=== PATIENT | female | born 1995 | race Asian ===

== ENCOUNTER 2018-07-01 15:38 | Inpatient (IN) ==
[2018-07-01 16:48] LABS: Basophils # (auto) 0.01 K/uL (0-0.2); Basophils % (auto) 0.2 %; Eosinophils # (auto) 0.01 K/uL (0-0.5); Eosinophils % (auto) 0.2 %; Hematocrit (blood only) 38.8 % (37-47); Hemoglobin 13.3 g/dL (12.0-16.0); Immature Granulocytes # (auto) 0.01 K/uL (0.00-0.02); Immature Granulocytes % (auto) 0.2 %; Lymphocytes # (auto) 0.82 K/uL (1.2-3.4); Lymphocytes % (auto) 18.2 %; Mean Corpuscular Hgb Conc 34.3 g/dL (32-36); Mean Corpuscular Volume 85.3 fL (80-100); Mean Platelet Volume 12.1 fL (7.4-10.4); Monocytes # (auto) 0.23 K/uL (0.11-0.59); Monocytes % (auto) 5.1 %; Neutrophils # (auto) 3.42 K/uL (1.4-6.5); Neutrophils % (auto) 76.1 %; Platelet Count 203 K/uL (130-400); RDW Coefficient of Variation 14.5 % (11.5-14.5); Red Blood Count 4.55 M/uL (4.2-5.4)
[2018-07-01 16:58] LABS: Appearance Urine Clear (Clear); Bilirubin Urine Negative (Negative); Blood Urine Negative (Negative); Color Urine Yellow; Glucose Urine UA Negative (Negative); Ketones Urine Trace (Negative); Leukocyte Esterase Urine Negative (Negative); Nitrite Urine Negative (Negative); Protein Urine Negative (Negative); Specific Gravity Urine 1.018 (1.000-1.030); Urobilinogen Urine Negative (Negative); pH Urine 5.5 (4.5-7.5)
[2018-07-01 17:10] LABS: Alanine Aminotransferase 25 U/L (12-78); Aspartate Aminotransferase 20 U/L (15-37); BUN Creatinine Ratio 16.3 (10-20); Blood Urea Nitrogen 9 mg/dl (7-18); Carbon Dioxide 23 mmol/L (21-32); Chloride 108 mmol/L (98-107); Est GFR (African American) > 150.0; Est GFR (Non-African American) 135.7; Glucose 80 mg/dl (70-99); Potassium 3.5 mmol/L (3.5-5.1); Sodium 139 mmol/L (136-145)
[2018-07-01 17:12] LABS: Pregnancy Test, Serum Negative (Negative)
[2018-07-01 17:15] LABS: Acetaminophen < 2 ug/ml (10-30); Salicylate < 1.7 mg/dl (2.8-20)
[2018-07-01 17:16] LABS: Amphetamines+Metham, Urine Neg (Neg); Barbiturates, Urine Neg (Neg); Benzodiazepine, Urine Neg (Neg); Cocaine, Urine Neg (Neg); MDMA (Ecstacy), Urine Neg (Neg); Methadone, Urine Neg (Neg); Opiate, Urine Neg (Neg); Phencyclidine, Urine Neg (Neg)
[2018-07-01 17:20] LABS: Albumin Globulin Ratio 0.8 (0.9-2); Alkaline Phosphatase 64 U/L (45-117); Bilirubin,Total 0.2 mg/dl (0.2-1); Globulin 4.8 gm/dl (2.5-4.0); Total Protein 8.8 gm/dl (6.4-8.2)
--- NOTE | 2018-07-01 19:49 | Emergency Department Note ---
Entered by Loren Deshpande acting as a scribe for History of Present Illness General Chief complaint: Mental Health Evaluation Stated complaint: MENTAL HEALTH EVALUATION Source: patient History of Present Illness Onset (ago): hour(s) (today) Location: head Pain Consistency: + other (persistent ) Quality: + other (thoughts of hurting self) Associated symptoms: + other (positive plan to hurt self; positive "feels helpless") The patient is a 23 year old female who presents to the Emergency Room with complaints of persistent thoughts of hurting herself that began today. Per nursing notes, the patient had a plan to jump off of a building. The patient states that she had these thoughts after receiving a notification of an academic integrity violation. The patient states that she violated academic integrity for taking pictures of past exams in her professor's office hours, and states that this violation will remain on her academic record. The patient states that she " feels so helpless". The patient states that she has no family here, and denies having any other counselor. The patient states that she went to [facility] today. Home Medications Home Medications Medication Instructions Recorded Confirmed Type hydroxychloroquine 200 mg PO BID 01/30/18 01/30/18 History norethindrone-e.estradiol-iron 07/01/18 History [[place] Fe 1-20 EQ (28)] Allergies Allergy/AdvReac Type Severity Reaction Status Date / Time No Known Allergies Allergy Verified 07/01/18 16:17 Past Med/Surg History Medical History Rheumatoid arthritis Family History Other No significant family history Social History Preferred Language: [place] Feels Safe at Home: Yes Smoking Status: Never smoker Review of Systems See HPI for pertinent positives & negatives. and A total of 10 systems reviewed and were otherwise negative Physical Exam Vital Signs Vital Signs - 24 hr 07/01/18 16:00 07/01/18 17:06 Temperature 36.6 C Temperature Source Oral Sepsis Recent Fever Within 48 Hours No Sepsis New/Unexplained Change in Mental Status No Sepsis Action Taken by Nursing No Action Required Pulse Rate 83 Pulse Rate [Right Finger] 89 Pulse Rhythm Regular Pulse Rhythm [Right Finger] Regular Pulse Strength Normal Pulse Strength [Right Finger] Normal Respiratory Rate 16 16 Respiratory Effort / Characteristics Non-Labored Spontaneous Non-Labored Spontaneous Respiratory Depth Normal Normal Respiratory Pattern Regular Regular Blood Pressure 115/72 Blood Pressure [Right Arm] 124/72 Blood Pressure Mean 86 Blood Pressure Mean [Right Arm] 89 Blood Pressure Position Sitting Blood Pressure Position [Right Arm] Sitting Pulse Oximetry 99 100 Oxygen Delivery Method Room Air Room Air GENERAL: Patient is awake, alert, and in no acute distress.Patient is mildly anxious appearing. EYES: The conjunctivae are clear. The pupils are round and reactive. EARS, NOSE, MOUTH AND THROAT: The nose is without any evidence of any deformity. Mucous membranes are moist.Tongue is midline NECK: The neck is nontender and supple. RESPIRATORY: Normal respiratory effort is noted. There is no evidence of wheezing rhonchi or rales to auscultation. CARDIOVASCULAR: Regular rate and rhythm noted. There no murmurs rubs or gallops normal S1 normal S2 GASTROINTESTINAL: The abdomen is soft. Bowel sounds are present in all quadrants. Abdomen is nontender. MUSCULOSKELETAL/EXTREMITIES: There is no evidence of gross deformity. Full range of motion is noted in the hips and shoulders. SKIN: There is no obvious evidence of any rash. There are no petechiae, pallor or cyanosis noted. NEUROLOGIC: Patient is awake alert and oriented x3. PSYCH: The patient is tearful. Affect flat. Patient admits to suicidal ideations with a plan to jump from a building. Course 155: The patient was evaluated in room A5, and a complete history and physical examination were performed. 191: The patient will sign in for further evaluation. 1939: A bed search is underway. Medical Decision Making Differential Diagnosis Differential diagnosis: Etiologies such as mood disorder, infection, hypoglycemia, electrolyte abnormalities, cardiac sources, intracerebral event, toxicologic, neurologic, as well as others were entertained. Medical Records Attestation: I reviewed the patient's medical records. Home Medications Current Medication List: was personally reviewed by me Laboratory Data Attestation: I reviewed the patient's lab results. Result diagrams: 07/01/18 16:15 07/01/18 16:15 Lab Results 07/01/18 07/01/18 07/01/18 Range/Units 16:15 16:15 16:15 WBC 4.50 L (4.8-10.8) K/uL RBC 4.55 (4.2-5.4) M/uL Hgb 13.3 (12.0-16.0) g/dL Hct 38.8 (37-47) % MCV 85.3 (80-100) fL MCH 29.2 (25-34) pg MCHC 34.3 (32-36) g/dL RDW Std Deviation 45.0 (36.4-46.3) fL RDW Coeff of [place] 14.5 (11.5-14.5) % Plt Count 203 (130-400) K/uL MPV 12.1 H (7.4-10.4) fL Immature Gran % (Auto) 0.2 % Neut % (Auto) 76.1 % Lymph % (Auto) 18.2 % [place] % (Auto) 5.1 % Eos % (Auto) 0.2 % Baso % (Auto) 0.2 % Immature Gran # (Auto) 0.01 (0.00-0.02) K/uL Neut # (Auto) 3.42 (1.4-6.5) K/uL Lymph # (Auto) 0.82 L (1.2-3.4) K/uL [place] # (Auto) 0.23 (0.11-0.59) K/uL Eos # (Auto) 0.01 (0-0.5) K/uL Baso # (Auto) 0.01 (0-0.2) K/uL Sodium 139 (136-145) mmol/L Potassium 3.5 (3.5-5.1) mmol/L Chloride 108 H (98-107) mmol/L Carbon Dioxide 23 (21-32) mmol/L Anion Gap 8.0 (3-11) BUN 9 (7-18) mg/dl Creatinine 0.53 L (0.6-1.2) mg/dl Est Cr Clr Drug Dosing Not Reportable Est GFR ( Amer) > 150.0 Est GFR (Non-Af Amer) 135.7 BUN/Creatinine Ratio 16.3 (10-20) Glucose 80 (70-99) mg/dl Calcium 9.0 (8.5-10.1) mg/dl Total Bilirubin 0.2 (0.2-1) mg/dl AST 20 (15-37) U/L ALT 25 (12-78) U/L Alkaline Phosphatase 64 (45-117) U/L Total Protein 8.8 H (6.4-8.2) gm/dl Albumin 4.0 (3.4-5.0) gm/dl Globulin 4.8 H (2.5-4.0) gm/dl Albumin/Globulin Ratio 0.8 L (0.9-2) TSH 0.705 (0.300-4.500) uIu/ml HCG, Qual (Negative) Urine Color Urine Appearance (Clear) Urine pH (4.5-7.5) Ur Specific [place] (1.000-1.030) Urine Protein (Negative) Urine Glucose (UA) (Negative) Urine Ketones (Negative) Urine Blood (Negative) Urine Nitrite (Negative) Urine Bilirubin (Negative) Urine Urobilinogen (Negative) Ur Leukocyte Esterase (Negative) Salicylates < 1.7 L (2.8-20) mg/dl Urine Opiates Screen (Neg) Ur Methadone, Qual (Neg) Acetaminophen < 2 L (10-30) ug/ml Urine Barbiturates (Neg) Ur Phencyclidine (PCP) (Neg) U Amphetamin/Meth Scrn (Neg) MDMA (Ecstasy) Screen (Neg) U Benzodiazepines Scrn (Neg) Ur Cocaine Metabolite (Neg) U Marijuana (THC) Screen (Neg) Ethyl Alcohol mg/dL (0-3) mg/dl 07/01/18 07/01/18 07/01/18 Range/Units 16:15 16:15 16:36 WBC (4.8-10.8) K/uL RBC (4.2-5.4) M/uL Hgb (12.0-16.0) g/dL Hct (37-47) % MCV (80-100) fL MCH (25-34) pg MCHC (32-36) g/dL RDW Std Deviation (36.4-46.3) fL RDW Coeff of [place] (11.5-14.5) % Plt Count (130-400) K/uL MPV (7.4-10.4) fL Immature Gran % (Auto) % Neut % (Auto) % Lymph % (Auto) % [place] % (Auto) % Eos % (Auto) % Baso % (Auto) % Immature Gran # (Auto) (0.00-0.02) K/uL Neut # (Auto) (1.4-6.5) K/uL Lymph # (Auto) (1.2-3.4) K/uL [place] # (Auto) (0.11-0.59) K/uL Eos # (Auto) (0-0.5) K/uL Baso # (Auto) (0-0.2) K/uL Sodium (136-145) mmol/L Potassium (3.5-5.1) mmol/L Chloride (98-107) mmol/L Carbon Dioxide (21-32) mmol/L Anion Gap (3-11) BUN (7-18) mg/dl Creatinine (0.6-1.2) mg/dl Est Cr Clr Drug Dosing Est GFR ( Amer) Est GFR (Non-Af Amer) BUN/Creatinine Ratio (10-20) Glucose (70-99) mg/dl Calcium (8.5-10.1) mg/dl Total Bilirubin (0.2-1) mg/dl AST (15-37) U/L ALT (12-78) U/L Alkaline Phosphatase (45-117) U/L Total Protein (6.4-8.2) gm/dl Albumin (3.4-5.0) gm/dl Globulin (2.5-4.0) gm/dl Albumin/Globulin Ratio (0.9-2) TSH (0.300-4.500) uIu/ml HCG, Qual Negative (Negative) Urine Color Urine Appearance (Clear) Urine pH (4.5-7.5) Ur Specific [place] (1.000-1.030) Urine Protein (Negative) Urine Glucose (UA) (Negative) Urine Ketones (Negative) Urine Blood (Negative) Urine Nitrite (Negative) Urine Bilirubin (Negative) Urine Urobilinogen (Negative) Ur Leukocyte Esterase (Negative) Salicylates (2.8-20) mg/dl Urine Opiates Screen Neg (Neg) Ur Methadone, Qual Neg (Neg) Acetaminophen (10-30) ug/ml Urine Barbiturates Neg (Neg) Ur Phencyclidine (PCP) Neg (Neg) U Amphetamin/Meth Scrn Neg (Neg) MDMA (Ecstasy) Screen Neg (Neg) U Benzodiazepines Scrn Neg (Neg) Ur Cocaine Metabolite Neg (Neg) U Marijuana (THC) Screen Neg (Neg) Ethyl Alcohol mg/dL < 3.0 (0-3) mg/dl 07/01/18 Range/Units 16:36 WBC (4.8-10.8) K/uL RBC (4.2-5.4) M/uL Hgb (12.0-16.0) g/dL Hct (37-47) % MCV (80-100) fL MCH (25-34) pg MCHC (32-36) g/dL RDW Std Deviation (36.4-46.3) fL RDW Coeff of [place] (11.5-14.5) % Plt Count (130-400) K/uL MPV (7.4-10.4) fL Immature Gran % (Auto) % Neut % (Auto) % Lymph % (Auto) % [place] % (Auto) % Eos % (Auto) % Baso % (Auto) % Immature Gran # (Auto) (0.00-0.02) K/uL Neut # (Auto) (1.4-6.5) K/uL Lymph # (Auto) (1.2-3.4) K/uL [place] # (Auto) (0.11-0.59) K/uL Eos # (Auto) (0-0.5) K/uL Baso # (Auto) (0-0.2) K/uL Sodium (136-145) mmol/L Potassium (3.5-5.1) mmol/L Chloride (98-107) mmol/L Carbon Dioxide (21-32) mmol/L Anion Gap (3-11) BUN (7-18) mg/dl Creatinine (0.6-1.2) mg/dl Est Cr Clr Drug Dosing Est GFR ( Amer) Est GFR (Non-Af Amer) BUN/Creatinine Ratio (10-20) Glucose (70-99) mg/dl Calcium (8.5-10.1) mg/dl Total Bilirubin (0.2-1) mg/dl AST (15-37) U/L ALT (12-78) U/L Alkaline Phosphatase (45-117) U/L Total Protein (6.4-8.2) gm/dl Albumin (3.4-5.0) gm/dl Globulin (2.5-4.0) gm/dl Albumin/Globulin Ratio (0.9-2) TSH (0.300-4.500) uIu/ml HCG, Qual (Negative) Urine Color Yellow Urine Appearance Clear (Clear) Urine pH 5.5 (4.5-7.5) Ur Specific [place] 1.018 (1.000-1.030) Urine Protein Negative (Negative) Urine Glucose (UA) Negative (Negative) Urine Ketones Trace H (Negative) Urine Blood Negative (Negative) Urine Nitrite Negative (Negative) Urine Bilirubin Negative (Negative) Urine Urobilinogen Negative (Negative) Ur Leukocyte Esterase Negative (Negative) Salicylates (2.8-20) mg/dl Urine Opiates Screen (Neg) Ur Methadone, Qual (Neg) Acetaminophen (10-30) ug/ml Urine Barbiturates (Neg) Ur Phencyclidine (PCP) (Neg) U Amphetamin/Meth Scrn (Neg) MDMA (Ecstasy) Screen (Neg) U Benzodiazepines Scrn (Neg) Ur Cocaine Metabolite (Neg) U Marijuana (THC) Screen (Neg) Ethyl Alcohol mg/dL (0-3) mg/dl Blood Pressure Blood Pressure Findings: Normal blood pressure MDM Narrative The patient is a 23-year-old female who presented to the emergency department for mental health evaluation. Patient was sent to the emergency department from [facility] for an evaluation of suicidal ideation with a plan. The patient was medically cleared in the emergency department. I do feel the patient is high risk given her recent developments with her grades. For this reason the patient was felt to be a good candidate for inpatient management. The patient was evalu ated by the mental health case assembler. She was offered a voluntary admission and was agreeable. The patient was medically cleared and a bed search is underway at this time. Impression & Plan Depression, Suicidal ideation Discharge Plan Visit Data *Final* Discharge Date/Time: 07/01/18 20:14 Chief Complaint: Mental Health Evaluation Stated Complaint: MENTAL HEALTH EVALUATION ED Provider: Joe Deutsch Discharge Problem: Depression, Suicidal ideation Patient Disposition: Admitted As Inpatient Discharge Instructions Interventions: ED Discharge Assessment Last Done: 07/01/18 20:14 Discharge Problem: Depression Qualifiers: Depression Type: unspecified Qualified Code(s): F32.9 - Major depressive disorder, single episode, unspecified The ramanaibe's documentation has been prepared under my direction and personally reviewed by me in its entirety. I confirm that the note above accurately reflects all work, treatment, procedures, and medical decision making performed by me.
[2018-07-01] MEDS ORDERED: ACETAMINOPHEN 325 MG TAB PO PRN (20:37)
[2018-07-01] MEDS ORDERED: MAGNESIUM HYDROXIDE SUSP 30 ML UDC PO PRN (20:37)
[2018-07-01] MEDS ORDERED: ALUMINUM/MAGNESIUM SUSP 30 ML UDC PO PRN (20:37)
[2018-07-01] MEDS ORDERED: BISMUTH SUBSALICYLATE PER ML OMNICELL CHARGE PO PRN (20:37)
[2018-07-01] MEDS ORDERED: SODIUM CHLORIDE 0.65% NA SOLN 45 ML (OCEAN) PRN (20:37)
--- NOTE | 2018-07-02 10:23 | History & Physical ---
Date of Service July 02, 2018 Impression / Recommendations Impression 23-year-old female admitted voluntarily for inpatient psychiatric treatment due to reports of SI associated with significant academic stressor. Pt was given an academic integrity violation and is experiencing severe anxiety related to the potential repercussions. She had experienced SI after being contacted by her professor, with plan to jump from a building. Presently patient is denying ongoing SI, but remains at risk of harm to herself given the stressor has not yet been addressed. At this time, there is limited criteria to diagnose a formal depressive or anxiety disorder, but her symptoms following this stressor could easily escalate to that level if left unaddressed. Will attempt to gather collateral information from boyfriend and other supports to ensure patient is not minimizing any concerns which predate the event in question. In the meantime, she will participate in group programming in order to develop healthy and effective coping strategies. No medication initiation is indicated based on information provided by patient, but could consider start of an SSRI if history should change. At this time, inpatient psychiatric admission is medically necessary due to reported SI with plan in relation to a significant academic stressor, history of depressive symptoms, and the fact that the risk factor in question has not been adequately addressed to reduce associated stress on patient. Pt is at increased risk of harm to self if discharged prematurely. Dr. Sabra Lisa was directly involved in review and discussion of the patient's case and participated in medical decision making regarding treatment recommendations. (1) Suicidal ideation: 07/02 - Admitted to a locked inpatient behavioral health unit, on q15 minute safety checks - Encourage medication initiation/adjustments as indicated - Encourage participation in group and recreational therapies - Gather collateral information from outpatient providers - Suggest family meeting to involve outpatient supports in safety planning - Arrange appropriate aftercare (2) Adjustment disorder with mixed anxiety and depressed mood: 07/02 - No clear criteria for a formal anxiety or depressive disorder at present: differential includes major depressive disorder, generalized anxiety disorder - certainly with potential to develop into either condition should stressors continue - Will hold on medication initiation given acute stressor; however, can consider SSRI if indicated following obtaining collateral information - Gather history of boyfriend to determine if any minimization of symptoms - Communication with the school regarding disciplinary actions - Assist with development of appropriate safety and aftercare planning (3) Rheumatoid arthritis: 07/02 - Confirm home dose of hydroxychloroquine and continue - Boyfriend to bring in medications Rheumatoid arthritis location: multiple sites Rheumatoid factor presence: unspecified presence Qualified Code(s): M06.9 - Rheumatoid arthritis, unspecified Risk Factors Assessment Male: No : No Do You Have Access To A Gun?: No Health Problems: Yes Mental Health Diagnoses: No (history of previous depressive symptoms) Substance Use Disorders: No Previous Attempt: No Family History of Suicide: No (unknown based on culture) Previous Psychiatric Hospitalization: Yes (to obtain antidepressants in [place] (no previous SI)) Hopelessness: Yes Smoker: No Protective Factors Assessment Religion Beliefs: No : No Responsible for Young Children: No Employed: No Stable Relationships: Yes Supportive Family: No (supportive but seen more as additional stressor) Psychiatric History Identifying Data SHAWNA CHANCE is 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 Pt was admitted on 07/01/18 19:35 on a 201 voluntary commitment for acute suicidal ideation, low mood, and anxiety related to academic stressor. Chief Complaint "I first went to [facility], yeah...I tell them what's going on. Then they tell me to come here because I have depression before." History of Present Illness Shawna Chance is a 23-year-old female admitted voluntarily for inpatient psychiatric treatment due to reported acute SI with plan to jump from a building. Pt was reported for an academic integrity violation during her finals week, and was very upset and unsure about the repercussions. Pt states she had been told by a classmate that she was allowed to take pictures of her old exams when reviewing during her professor's office hours. Pt states she did not realize this was not allowed and was confused as to why no one reprimanded her in the moment. She reports receiving an email from her professor following the event - informing her she would be reported for academic dishonesty. Pt reports feeling confused and very overwhelmed by this. She states she explained the situation to her professor, who did not respond positively to her explanation. Pt states she is still hoping the professor reverses the charge, as she believes the situation to be a misunderstanding. She is very concerned about the effect this will have on her applications for graduate school, and reported receives significant pressure from her parents to perform well academically and get into a graduate program. Pt reports having a "very stressful life" - stating her parents hold high expectations for her academic performance and she is very concerned at what their reaction will be. Pt reports previous depressive symptoms the summer, when she had learned her academic performance was sub-par. Pt reports 2-3 months of low mood, anergy, isolative behavior, increased sleep and retreating to bed, and regret. She states she was started on medication after a hospitalization. She denies any suicidal thoughts at that time. Pt does not recall the medication she was prescribed, but reports taking it for only 2-3 months before discontinuing. Pt states she had noticed significant improvement in academics and mood since that time. Until this event - the patient denies any symptoms suggestive of depression or anxiety stating "it was all getting better until this happened." At time of this encounter, patient denies ongoing SI, but remains unsure about what will happen to her academically. She is concerned the information will be see on her graduate school applications and may prevent her from getting into a program. Pt denies SIB, HI, A/V hallucinations, paranoia, germania/hypomania, other symptoms more suggestive of a bipolar presentation, OCD, PTSD, eating disorder, and other specific psychiatric symptoms. Past Psychiatric History Previous Psych History: Hospitalization in [place] to obtain antidepressant medications - Summer 2017 Current Psychiatric Diagnosis: Depression Outpatient Services: None presently; seen once at [facility] just prior to admission Previous Psych Admissions: Hospitalization in [place] to obtain medications Do You Have Access To A Gun?: No History of Previous Suicide Attempt: No Describe Attempts in the Past: No prior attempts Past Medication Trials: Unsure - 1 previous medication, but name is unknown Past Head Trauma/Neuro History History of Concussion/Seizure: No Allergies Allergy/AdvReac Type Severity Reaction Status Date / Time No Known Allergies Allergy Verified 07/01/18 16:17 Home Medications Home Medications Medication Instructions Recorded Confirmed Type hydroxychloroquine 100 mg PO BID 01/30/18 07/02/18 History norethindrone-e.estradiol-iron 07/01/18 History [Mcbain Fe 1-20 EQ (28)] norethindrone-e.estradiol-iron 1 tab PO HS 07/02/18 07/02/18 History [Mcbain Fe 1-20 EQ (28)] Family History Family History of: Doesn't Know (culturally it is not discussed) Alcohol History Hx of Alcohol Use Over the Past 12 Months: No Smoking Use Have You Smoked or Used Tobacco Products in the Last 30 Days: No Smoking Status: Never smoker Substance History Hx of Prescription Med Misuse Over the Past 12 Months: No Hx of Over the Counter Med Misuse Over the Past 12 Months: No Hx of Inhalent Misuse Over the Past 12 Months: No Hx of Organic Substance Use Over the Past 12 Months: No Hx of Illegal Substances/Street Drug Use Over Past 12 Months: No Problems as a Result of Past Substance Use: None Identified Personal History Living Arrangements: Apartment (with boyfriend) Born In: [place] - family still resides there Childhood: Reports a "very stressful life"; parents reportedly put additional pressure on her. She is an only child. Highest Grade Completed: Some College ([employer] at [employer] - studying [email or web address]) Employment Status: Student Marital Status: Living w/ Signif. Other (boyfriend of 6 months) Number Of Children: None Beliefs That Will Affect Care: None Current Legal Problems: No Patient History Medical History Rheumatoid arthritis Family History Other No significant family history Social History Preferred Language: Belarusian Communication Ability: Effective Communication Ability Comment: language barrier at times Adobe Developer Required: No Beliefs That Will Affect Care: None Feels Safe at Home: Yes Smoking Status: Never smoker Review of Systems Review of Systems: Constitutional: reports recent fatigue Cardiovascular: denied Respiratory: reports cough from recent URI Gastrointestinal: denied Neurological: denied Musculoskeletal: reports joint pain in fingers, wrists, elbows and knees Psychiatric: denies symptoms other than stated above Total of at least 10 systems reviewed, pertinent positives as above and in HPI. Physical Exam Psychiatric: Orientation: alert, oriented x 3 and cooperative Apperance: appropriately dressed, appropriately groomed and appeared stated age Thin- appearing, female seated in no acute distress. Level of hygiene and hydration appear adequate. She is appropriately groomed, dressed in sweatshirt and jeans, hair long but neat Eye Contact: good eye contact Motor Behavior: steady gait and station and no abnormal motor movements Speech: normal rate/rhythm/volume of speech Affect: + anxious affect and + tearful affect Mood: + depressed mood and + anxious mood "it's even worse than last year when I got a depression" and "just worried, scared" Thought Process: goal directed thought process, linear/logical thought process and clear/coherent thought process Thought Content: reality based without delusions Suicidal Thoughts: denies suicidal thoughts (but presented with SI and plan to jump from building) Homicidal Thoughts: denies homicidal thoughts Hallucinations: no auditory hallucinations and no visual hallucinations Cognition: recent memory grossly intact, remote memory grossly intact, attention grossly intact and language grossly intact Estimated Intelligence: consistent with education level Insight: + fair insight Judgement: + fair judgement Vital Signs (Past 24 Hours): Last Vital Signs Temp 36.6 C 07/02/18 06:56 Pulse 106 H 07/02/18 06:57 Resp 16 07/02/18 06:56 BP 99/67 L 07/02/18 06:57 Pulse Ox 99 07/01/18 20:38 Exam Statement: A physical exam was performed in the ER prior to admission to the unit by Dr. Joe Deutsch DO. I accept that physical as correct/medical clearance for the inpatient physical exam. Results & Data Laboratory Results Laboratory Results - last 24 hr 07/01/18 07/01/18 07/01/18 16:15 16:15 16:15 WBC 4.50 L RBC 4.55 Hgb 13.3 Hct 38.8 MCV 85.3 MCH 29.2 MCHC 34.3 RDW Std Deviation 45.0 RDW Coeff of Dontrell 14.5 Plt Count 203 MPV 12.1 H Immature Gran % (Auto) 0.2 Neut % (Auto) 76.1 Lymph % (Auto) 18.2 [place] % (Auto) 5.1 Eos % (Auto) 0.2 Baso % (Auto) 0.2 Immature Gran # (Auto) 0.01 Neut # (Auto) 3.42 Lymph # (Auto) 0.82 L Wet[place] # (Auto) 0.23 Eos # (Auto) 0.01 Baso # (Auto) 0.01 Sodium 139 Potassium 3.5 Chloride 108 H Carbon Dioxide 23 Anion Gap 8.0 BUN 9 Creatinine 0.53 L Est Cr Clr Drug Dosing Not Reportable Est GFR ( Amer) > 150.0 Est GFR (Non-Af Amer) 135.7 BUN/Creatinine Ratio 16.3 Glucose 80 Calcium 9.0 Total Bilirubin 0.2 AST 20 ALT 25 Alkaline Phosphatase 64 Total Protein 8.8 H Albumin 4.0 Globulin 4.8 H Albumin/Globulin Ratio 0.8 L TSH 0.705 HCG, Qual Urine Color Urine Appearance Urine pH Ur Specific [place] Urine Protein Urine Glucose (UA) Urine Ketones Urine Blood Urine Nitrite Urine Bilirubin Urine Urobilinogen Ur Leukocyte Esterase Salicylates < 1.7 L Urine Opiates Screen Ur Methadone, Qual Acetaminophen < 2 L Urine Barbiturates Ur Phencyclidine (PCP) U Amphetamin/Meth Scrn MDMA (Ecstasy) Screen U Benzodiazepines Scrn Ur Cocaine Metabolite U Marijuana (THC) Screen Ethyl Alcohol mg/dL 07/01/18 07/01/18 07/01/18 16:15 16:15 16:36 WBC RBC Hgb Hct MCV MCH MCHC RDW Std Deviation RDW Coeff of Dontrell Plt Count MPV Immature Gran % (Auto) Neut % (Auto) Lymph % (Auto) [place] % (Auto) Eos % (Auto) Baso % (Auto) Immature Gran # (Auto) Neut # (Auto) Lymph # (Auto) [place] # (Auto) Eos # (Auto) Baso # (Auto) Sodium Potassium Chloride Carbon Dioxide Anion Gap BUN Creatinine Est Cr Clr Drug Dosing Est GFR ( Amer) Est GFR (Non-Af Amer) BUN/Creatinine Ratio Glucose Calcium Total Bilirubin AST ALT Alkaline Phosphatase Total Protein Albumin Globulin Albumin/Globulin Ratio TSH HCG, Qual Negative Urine Color Urine Appearance Urine pH Ur Specific [place] Urine Protein Urine Glucose (UA) Urine Ketones Urine Blood Urine Nitrite Urine Bilirubin Urine Urobilinogen Ur Leukocyte Esterase Salicylates Urine Opiates Screen Neg Ur Methadone, Qual Neg Acetaminophen Urine Barbiturates Neg Ur Phencyclidine (PCP) Neg U Amphetamin/Meth Scrn Neg MDMA (Ecstasy) Screen Neg U Benzodiazepines Scrn Neg Ur Cocaine Metabolite Neg U Marijuana (THC) Screen Neg Ethyl Alcohol mg/dL < 3.0 07/01/18 16:36 WBC RBC Hgb Hct MCV MCH MCHC RDW Std Deviation RDW Coeff of Dontrell Plt Count MPV Immature Gran % (Auto) Neut % (Auto) Lymph % (Auto) [place] % (Auto) Eos % (Auto) Baso % (Auto) Immature Gran # (Auto) Neut # (Auto) Lymph # (Auto) [place] # (Auto) Eos # (Auto) Baso # (Auto) Sodium Potassium Chloride Carbon Dioxide Anion Gap BUN Creatinine Est Cr Clr Drug Dosing Est GFR ( Amer) Est GFR (Non-Af Amer) BUN/Creatinine Ratio Glucose Calcium Total Bilirubin AST ALT Alkaline Phosphatase Total Protein Albumin Globulin Albumin/Globulin Ratio TSH HCG, Qual Urine Color Yellow Urine Appearance Clear Urine pH 5.5 Ur Specific [place] 1.018 Urine Protein Negative Urine Glucose (UA) Negative Urine Ketones Trace H Urine Blood Negative Urine Nitrite Negative Urine Bilirubin Negative Urine Urobilinogen Negative Ur Leukocyte Esterase Negative Salicylates Urine Opiates Screen Ur Methadone, Qual Acetaminophen Urine Barbiturates Ur Phencyclidine (PCP) U Amphetamin/Meth Scrn MDMA (Ecstasy) Screen U Benzodiazepines Scrn Ur Cocaine Metabolite U Marijuana (THC) Screen Ethyl Alcohol mg/dL Current Inpatient Medications Current Inpatient Medications: Current Inpatient Medications Acetaminophen (Tylenol) 650 mg PO Q4H PRN PRN Reason: Headache or Minor Fever Stop: 07/31/18 20:36 Al Hydrox/Mg Hydrox/Simethicone (Maalox) 30 ml PO Q4H PRN PRN Reason: GI Upset Stop: 07/31/18 20:36 Bismuth Subsalicylate (Kaopectate) 15 ml PO PRN PRN PRN Reason: Loose Stool Stop: 07/31/18 20:36 Hydroxyzine HCl (Vistaril) 50 mg PO HSZ PRN PRN Reason: Insomnia Stop: 07/31/18 20:36 Hydroxyzine HCl (Vistaril) 25 mg PO Q4H PRN PRN Reason: Anxiety Stop: 07/31/18 20:36 Magnesium Hydroxide (Milk Of Magnesia) 30 ml PO DAILY PRN PRN Reason: Heartburn Stop: 07/31/18 20:36 Sodium Chloride ([place] Nasal) 1 - 2 sprays NA PRN PRN PRN Reason: Nasal Dryness/Congestion Stop: 07/31/18 20:36 CPT Code CPT Code Initial Hospital Care: 57703
[2018-07-02] MEDS: HYDROXYCHLOROQUINE SULFATE 200 MG TAB PO SCH (21:51)
[2018-07-02] MEDS ORDERED: [UNRECOGNIZED DRUG - OTHER] PO SCH (22:00)
[2018-07-03] MEDS: HYDROXYCHLOROQUINE SULFATE 200 MG TAB PO SCH (08:46)
--- NOTE | 2018-07-03 10:11 | Discharge Summary ---
Date of Service July 03, 2018 History of Present Illness Magda Uribe is a 23-year-old female admitted voluntarily for inpatient psychiatric treatment due to reported acute SI with plan to jump from a building. Pt was reported for an academic integrity violation during her finals week, and was very upset and unsure about the repercussions. Pt states she had been told by a classmate that she was allowed to take pictures of her old exams when reviewing during her professor's office hours. Pt states she did not realize this was not allowed and was confused as to why no one reprimanded her in the moment. She reports receiving an email from her professor following the event - informing her she would be reported for academic dishonesty. Pt reports feeling confused and very overwhelmed by this. She states she explained the situation to her professor, who did not respond positively to her explanation. Pt states she is still hoping the professor reverses the charge, as she believes the situation to be a misunderstanding. She is very concerned about the effect this will have on her applications for graduate school, and reported receives significant pressure from her parents to perform well academically and get into a graduate program. Pt reports having a "very stressful life" - stating her parents hold high expectations for her academic performance and she is very concerned at what their reaction will be. Pt reports previous depressive symptoms the summer, when she had learned her academic performance was sub-par. Pt reports 2-3 months of low mood, anergy, isolative behavior, increased sleep and retreating to bed, and regret. She states she was started on medication after a hos pitalization. She denies any suicidal thoughts at that time. Pt does not recall the medication she was prescribed, but reports taking it for only 2-3 months before discontinuing. Pt states she had noticed significant improvement in academics and mood since that time. Until this event - the patient denies any symptoms suggestive of depression or anxiety stating "it was all getting better until this happened." At time of this encounter, patient denies ongoing SI, but remains unsure about what will happen to her academically. She is concerned the information will be see on her graduate school applications and may prevent her from getting into a program. Pt denies SIB, HI, A/V hallucinations, paranoia, germania/hypomania, other symptoms more suggestive of a bipolar presentation, OCD, PTSD, eating disorder, and other specific psychiatric symptoms. Physical Exam Mental Examination Thin female appearing younger than her stated age. Casually dressed, good grooming and hygiene, seated in no acute distress with good eye contact and no abnormal movements. Calm and cooperative with the assessment. Mood is "good, as long as I do not think about it," and affect is stable, mildly anxious, appropriate, and congruent. Speech is spontaneous, normal rate, volume, and tone. Thoughts are goal-directed. Denies SI, HI, hallucinations, paranoia. Alert and oriented. Memory, attention, and language are grossly intact per interview. Insight and judgment are poor-fair. Vital Signs (Past 24 Hours) Last Vital Signs Temp 36.6 C 07/03/18 06:00 Pulse 0 L 07/03/18 06:00 Resp 16 07/03/18 06:00 BP 103/72 07/03/18 06:00 Pulse Ox 99 07/01/18 20:38 Principal Diagnosis Adjustment disorder with mixed anxiety and depressed mood. History of major depression, single episode, moderate to severe. Psychiatric Data The patient was on our unit for 2 days. She consistently denied suicidality, stating that she had brief suicidal thoughts after finding out she had been reported for her second conduct violation, but that they had resolved. Although she reported being anxious about the consequences, she denied depressive or anxiety symptoms sufficient to meet criteria for major depression or an anxiety disorder. Although she reported a history of a depressive episode in the summer 2017 which was treated with an antidepressant, she denied depressive symptoms prior to the day of presentation. Although she declined involvement of her parents in [place], her boyfriend whom she lives with locally was involved in treatment and she had a family meeting with him on 07/02/2018. He agreed to that she had not been struggling with mood or anxiety symptoms prior to the day of presentation, and denied any safety concerns with her leaving the hospital. They live together with another roommate, and she and her boyfriend are both going to [place] for 3 weeks in July, traveling there and returning together. She initially stated she was not willing for outpatient treatment, but ultimately agreed to go to [facility] for therapy. She signed a release for the University and the high school social studies tutor contacted staff at the Office of Student Care and Advocacy, who stated that when the patient is accused of misconduct, it generally goes into their contact file, but not on their transcripts, so would not affect graduate school applications. They agreed to meet with the patient after discharge to advocate for her and assist her in meeting with the Student Conduct Office. Day of Discharge Assessment The patient reports her mood is "good," denies suicidal thoughts, maintains that she only had brief suicidal thoughts after receiving notification of the allegations of misconduct, and denies any safety concerns outside of the hospital. She continues to report feeling overwhelmed and anxious about the consequences of the misconduct allegations, and states her plan is to "try not to think about it." With prompting, she is able to outline other healthy ways to cope with stress, including talking to her boyfriend, working, and staying busy. She is not interested in antidepressant treatment or follow-up with a psychiatrist, but is willing to return to [facility] for counseling. She is also willing to meet with the University as above. She is requesting discharge. Transition of Care Transition Of Care Record: was reviewed with the patient Advance Directives Advance Directives Information Provided: Yes Advance Directives: No Mental Health Advance Directive: No Advance Directives on File: No Living Will: No Power of Field Service Analyst: No Advance Directives Reason:: Declines as Mental Health Visit. Risk Factors Assessment Risk factors were mitigated by admission to the inpatient unit, educating the patient about her diagnosis and the treatment options, recommending a family meeting with parents which she declined, but holding a family meeting with her boyfriend whom she lives with, coordinating with the University at her request, involving her in groups and therapy, working on healthy coping skills and a discharge safety plan. Patient is denying symptoms sufficient to meet criteria for major depression or anxiety disorder, but does meet criteria for adjustment disorder. She is consistently denying suicidal thoughts, admitting that she had been briefly on the day of presentation after receiving notification of the allegations of misconduct, but denying that they have returned since then, and denying any intent to harm herself. She is willing to follow up with outpatient counseling, and reports good support from her boyfriend, who also denies any safety concerns with discharge. She is performing ADLs independently here, and making plans for the future. She is requesting discharge, and as she is not at acute risk of harm to herself, can be managed as an outpatient at this time. Male: No : No Do You Have Access To A Gun?: No Health Problems: Yes Mental Health Diagnoses: Yes (History of depression, currently diagnosed with adjustment disorder) Substance Use Disorders: No Previous Attempt: No Family History of Suicide: No (unknown based on culture) Previous Psychiatric Hospitalization: Yes (to obtain antidepressants in [place] (no previous SI)) Hopelessness: Yes Smoker: No Protective Factors Assessment Shinto Beliefs: No : No Responsible for Young Children: No Employed: No Stable Relationships: Yes Supportive Family: No (supportive but seen more as additional stressor) Tobacco Cessation at Discharge Tobacco Cessation Medication Prescribed at Discharge: Not Applicable/Non-Smoker Total Time Total Time Spent: Greater Than 30 Minutes Total Time Includes: Examination of the patient, Discharge Planning and Medication Reconciliation Discharge Data Lab Results 07/01/18 07/01/18 07/01/18 16:15 16:15 16:15 WBC 4.50 L RBC 4.55 Hgb 13.3 Hct 38.8 MCV 85.3 MCH 29.2 MCHC 34.3 RDW Std Deviation 45.0 RDW Coeff of [place]rell 14.5 Plt Count 203 MPV 12.1 H Immature Gran % (Auto) 0.2 Neut % (Auto) 76.1 Lymph % (Auto) 18.2 [place] % (Auto) 5.1 Eos % (Auto) 0.2 Baso % (Auto) 0.2 Immature Gran # (Auto) 0.01 Neut # (Auto) 3.42 Lymph # (Auto) 0.82 L [place] # (Auto) 0.23 Eos # (Auto) 0.01 Baso # (Auto) 0.01 Sodium 139 Potassium 3.5 Chloride 108 H Carbon Dioxide 23 Anion Gap 8.0 BUN 9 Creatinine 0.53 L Est Cr Clr Drug Dosing Not Reportable Est GFR ( Amer) > 150.0 Est GFR (Non-Af Amer) 135.7 BUN/Creatinine Ratio 16.3 Glucose 80 Calcium 9.0 Total Bilirubin 0.2 AST 20 ALT 25 Alkaline Phosphatase 64 Total Protein 8.8 H Albumin 4.0 Globulin 4.8 H Albumin/Globulin Ratio 0.8 L TSH 0.705 HCG, Qual Urine Color Urine Appearance Urine pH Ur Specific [place] Urine Protein Urine Glucose (UA) Urine Ketones Urine Blood Urine Nitrite Urine Bilirubin Urine Urobilinogen Ur Leukocyte Esterase Salicylates < 1.7 L Urine Opiates Screen Ur Methadone, Qual Acetaminophen < 2 L Urine Barbiturates Ur Phencyclidine (PCP) U Amphetamin/Meth Scrn MDMA (Ecstasy) Screen U Benzodiazepines Scrn Ur Cocaine Metabolite U Marijuana (THC) Screen Ethyl Alcohol mg/dL 07/01/18 07/01/18 07/01/18 16:15 16:15 16:36 WBC RBC Hgb Hct MCV MCH MCHC RDW Std Deviation RDW Coeff of [place] Plt Count MPV Immature Gran % (Auto) Neut % (Auto) Lymph % (Auto) [place] % (Auto) Eos % (Auto) Baso % (Auto) Immature Gran # (Auto) Neut # (Auto) Lymph # (Auto) [place] # (Auto) Eos # (Auto) Baso # (Auto) Sodium Potassium Chloride Carbon Dioxide Anion Gap BUN Creatinine Est Cr Clr Drug Dosing Est GFR ( Amer) Est GFR (Non-Af Amer) BUN/Creatinine Ratio Glucose Calcium Total Bilirubin AST ALT Alkaline Phosphatase Total Protein Albumin Globulin Albumin/Globulin Ratio TSH HCG, Qual Negative Urine Color Urine Appearance Urine pH Ur Specific [place] Urine Protein Urine Glucose (UA) Urine Ketones Urine Blood Urine Nitrite Urine Bilirubin Urine Urobilinogen Ur Leukocyte Esterase Salicylates Urine Opiates Screen Neg Ur Methadone, Qual Neg Acetaminophen Urine Barbiturates Neg Ur Phencyclidine (PCP) Neg U Amphetamin/Meth Scrn Neg MDMA (Ecstasy) Screen Neg U Benzodiazepines Scrn Neg Ur Cocaine Metabolite Neg U Marijuana (THC) Screen Neg Ethyl Alcohol mg/dL < 3.0 07/01/18 16:36 WBC RBC Hgb Hct MCV MCH MCHC RDW Std Deviation RDW Coeff of [place] Plt Count MPV Immature Gran % (Auto) Neut % (Auto) Lymph % (Auto) [place] % (Auto) Eos % (Auto) Baso % (Auto) Immature Gran # (Auto) Neut # (Auto) Lymph # (Auto) [place] # (Auto) Eos # (Auto) Baso # (Auto) Sodium Potassium Chloride Carbon Dioxide Anion Gap BUN Creatinine Est Cr Clr Drug Dosing Est GFR ( Amer) Est GFR (Non-Af Amer) BUN/Creatinine Ratio Glucose Calcium Total Bilirubin AST ALT Alkaline Phosphatase Total Protein Albumin Globulin Albumin/Globulin Ratio TSH HCG, Qual Urine Color Yellow Urine Appearance Clear Urine pH 5.5 Ur Specific [place] 1.018 Urine Protein Negative Urine Glucose (UA) Negative Urine Ketones Trace H Urine Blood Negative Urine Nitrite Negative Urine Bilirubin Negative Urine Urobilinogen Negative Ur Leukocyte Esterase Negative Salicylates Urine Opiates Screen Ur Methadone, Qual Acetaminophen Urine Barbiturates Ur Phencyclidine (PCP) U Amphetamin/Meth Scrn MDMA (Ecstasy) Screen U Benzodiazepines Scrn Ur Cocaine Metabolite U Marijuana (THC) Screen Ethyl Alcohol mg/dL Hospital Course (1) Suicidal ideation: 07/02 - Admitted to a locked inpatient behavioral health unit, on q15 minute safety checks - Encourage medication initiation/adjustments as indicated - Encourage participation in group and recreational therapies - Gather collateral information from outpatient providers - Suggest family meeting to involve outpatient supports in safety planning - Arrange appropriate aftercare 07/03 - Patient consistently denying suicidal thoughts here, and is able to review her discharge safety plan. Both she and her boyfriend deny any acute safety concerns. Reviewed options to call the crisis line, [facility], or come to the ER if she feels unsafe. (2) Adjustment disorder with mixed anxiety and depressed mood: 07/02 - No clear criteria for a formal anxiety or depressive disorder at present: differential includes major depressive disorder, generalized anxiety disorder - certainly with potential to develop into either condition should stressors continue - Will hold on medication initiation given acute stressor; however, can consider SSRI if indicated following obtaining collateral information - Gather history of boyfriend to determine if any minimization of symptoms - Communication with the school regarding disciplinary actions - Assist with development of appropriate safety and aftercare planning 07/03 -Meeting held with boyfriend, who supports patient's report that mood and anxiety were not a problem for her until the day of presentation when she received notification about the conduct report. Patient informed that if symptoms do not resolve in the next 1-2 weeks, she may meet criteria for depression or anxiety, and may benefit from follow-up with a psychiatrist and a trial of an SSRI antidepressant. She is agreeing to follow-up with therapy ats. (3) Rheumatoid arthritis: 07/02 - Confirm home dose of hydroxychloroquine and continue - Boyfriend to bring in medications Post Discharge Appointments Primary Care Physician Name Of Family Doctor: [facility] Primary Care Time of Appointment with PCP: Follow up as needed Provider Appointment Comment: [facility], [place] [address] Therapist Name of Therapist: None/Today 1st contact at [facility] as walk in Credit Card Specialist Name of Credit Card Specialist: Student Care and Advocacy Phone Number for Credit Card Specialist: [phone] Case Management Appointment Comment: [address] [facility] Smoking Cessation Counseling Tobacco Cessation Medication Prescribed at Discharge: Not Applicable/Non-Smoker Contact Information Discharge Discharge Address: [address] [place] [address] Discharge Plan Discharge Items Patient Disposition: Home - Self-Care Reason For Visit: DEPRESSION NOS Discharge Diagnosis: Adjustment disorder with depressive and anxiety Discharge Goals: Decrease discomfort, Prevent disease and Therapeutic intervention Activity: Per 'Additional Instructions' section Non-emergency contact: Therapist Call non-emergency contact if: your symptoms worsen Follow-up/Referrals: [facility] [Primary Care Provider] - Diet: Regular Addtl Provider Instructions: SPECIAL CARE INSTRUCTIONS: 1. Follow through with your scheduled aftercare appointments. If unable to keep an appointment, please call to reschedule. 2. You are not on medications. If mood symptoms worsen, a trial of antidepressant may be indicated. 3. Utilize new healthy coping skills, anger management skills, and stress management skills learned during your hospitalization. Journal feelings and process them with a support person. Identify stressors or situations that may result in relapse, deterioration or inappropriate behaviors and develop a plan to deal with those issues. 4. If your coping skills are ineffective and you are in crisis, contact your outpatient providers for direction. If unable to reach your providers, please call the CAN HELP LINE AT or go to the closest Emergency Room. 5. Avoid alcohol and un-prescribed drugs. 6. You have been provided with the Mental Health Advance Directives Pamphlet for your review. AFTERCARE APPOINTMENTS: * Please call your insurance company prior to your scheduled appointment to confirm your aftercare providers are covered. Take your insurance information to your appointments. WHO TO CALL AND WHEN: Medical Emergencies: For questions or emergencies related to your hospital stay, please contact the Inpatient Behavioral Health Unit at [phone]. A grade foreman is on-call 17/09 for the Behavioral Health Unit for emergencies At any time you feel your situation is an emergency, you may also call 911 immediately. Your Doctors Instructions noted above were prepared by provider Sabra Lisa MD. Prescriptions: Continued norethindrone-e.estradiol-iron [Gideon Fe 1-20 EQ (28)] 1 mg-20 mcg (21)/75 mg (7) tablet 1 tab PO HS RF: 0 hydroxychloroquine 200 mg Tablet 100 mg PO BID RF: 0 Stand-Alone Forms: [facility] Discharge Orders: Discharge Order (Routine); Ordered 07/03/18 Ordered By: Sabra Lisa Admission Data Admit Date/Time: 07/01/18 19:35 Attending Provider: Sabra Lisa Admit Provider: Lena Guzmán Primary Care Provider: [facility] Service: Psychiatry Other Interventions: PSY Interdisciplinary Discharge Planning Last Done: 07/02/18 12:49 Pending Studies at Discharge: No
== END 2018-07-03 13:30 | disposition home or self-care (01) | DRG 882 ==
LOC: ED 15:38 → 3S 19:35